=== PATIENT | female | born 2000 | race Caucasian/White ===

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

== ENCOUNTER 2018-06-02 19:48 | Emergency (ER) | END 2018-06-03 01:00 | disposition home or self-care (01) ==

== ENCOUNTER 2018-10-26 15:03 | Emergency (ER) | payer OTHER ==
[~2018-10-26] VITALS: Ht 160 cm; Wt 48.1 kg
[~2018-10-26 15:03] MED LIST changes: +ACET500C5 PO; +IBUP-1542 PO; +IBUP-1561 PO; -IBUP400T22 PO; -NAPR-265 PO; +NAPR-987 PO
[2018-10-26 15:11] VITALS: BP 127/68; PULSE 65; RESP 18; Ht 160 cm; Wt 48.1 kg
[2018-10-26] MEDS ORDERED: IBUP-1542 PO (16:54)
[2018-10-26] MEDS ORDERED: IBUP-1561 PO (16:55)
[2018-10-26] MEDS ORDERED: AMOX500C2 PO (16:56)
[2018-10-26] MEDS ORDERED: FLUT9.9S NASAL (16:56)
--- NOTE | 2018-10-26 17:06 | ERD ---
ER Documentation Chief Complaint Chief Complaint sinus pain, frontal DENNIS X 1 day HPI Patient is a 18-year-old female who presents ER for concerns of intermittent headaches for the last month. Patient states she has had a history of sinus headaches. Patient states over the last month her sinus pain is gotten worse. Patient reports clear nasal secretions. Patient states she has increased pressure in her bilateral miser sinuses. Patient denies any fevers or chills. Patient denies any blurry vision, nausea, vomiting, photophobia, phonophobia, confusion or excessive sleepiness. Patient denied falls or trauma. ROS All systems reviewed and are negative except as per history of present illness. Medications Home Meds Active Scripts Fluticasone Propionate (Flonase Allergy Relief) 9.9 Ml [place].susp, 1 SPRAY NASAL BID, #1 BOTTLE TO EACH NOSTRIL Prov:DANI WHITNEY PA-C 10/26/18 Amoxicillin* (Amoxicillin*) 500 Mg Cap, 500 MG PO BID for 7 Days, CAP Prov:DANI WHITNEY PA-C 10/26/18 Ibuprofen* (Motrin*) 400 Mg Tab, 400 MG PO Q6, #30 TAB Prov:DANI WHITNEY PA-C 10/26/18 Acetaminophen* (Tylophen*) 500 Mg Capsule, 1 CAP PO Q6H PRN for PAIN AND OR ELEVATED TEMP, #20 CAP Prov:MORGAN MORSE 06/03/18 Ibuprofen* (Motrin*) 600 Mg Tab, 600 MG PO Q6H PRN for PAIN AND OR ELEVATED TEMP, #30 TAB Prov:MORGAN MORSE 06/03/18 Ibuprofen* (Motrin*) 400 Mg Tab, 400 MG PO Q6, #30 TAB Prov:JCARLOS ROGERS 05/22/16 Reported Medications Ibuprofen (ADVIL LIQUI-GELS) 200 Mg Capsule, 600 MG PRN 08/11/14 Naproxen (Ec-Naprosyn) 500 Mg Tablet.dr, PO PRN 08/11/14 Sumatriptan Succinate* (Imitrex*) 25 Mg Tablet, 50 MG PRN 08/11/14 Discontinued Scripts Ibuprofen* (Motrin*) 600 Mg Tab, 600 MG PO Q6, #30 TAB Prov:DANI WHITNEY PA-C 10/26/18 Allergies Allergies: Coded Allergies: No Known Allergy (Unverified , 10/26/18) PMhx/Soc Hx Neurological Disorder: Yes (MIGRAINES) Hx Respiratory Disorders: Yes (asthma) Hx Alcohol Use: No Hx Substance Use: No Hx Tobacco Use: No Smoking Status: Never smoker FmHx Family History: No diabetes Physical Exam Vitals Vital Signs Date Temp Pulse Resp B/P (MAP) Pulse Ox O2 O2 Flow FiO2 Time Delivery Rate 10/26/18 96.8 65 18 127/68 98 15:11 (87) Physical Exam GENERAL: Well-developed, well-nourished female. Appears in no acute distress. speaking in full sentences s. HEAD: Normocephalic, atraumatic. EYES: Pupils are equally reactive bilaterally. EOMs grossly intact. No conjunctival erythema. ENT: Moist mucous membranes. No uvula deviation. No kissing tonsils. Bilateral maxillary sinuses are tender to palpation. NECK: Supple. No meningismus. Normal range of motion of the neck. LUNG: Clear to auscultation bilaterally. No rhonchi, wheezing, rales or coarse breath sounds. HEART: Regular rate and rhythm. No murmurs, rubs or gallops. EXTREMITIES: Equal pulses bilaterally. No peripheral clubbing, cyanosis or edema. No unilateral leg swelling. NEUROLOGIC: Alert and oriented. Moving all four extremities without any difficulty. Normal speech. Steady gait. SKIN: Normal color. Warm and dry. No rashes or lesions. Procedures/MDM MEDICAL DECISION MAKING: This is a 18-year-old female with history of recurrent sinusitis presents ER for concerns of a sinus headache times 1 day. Patient states she had intermittent sinus pain for the last month. Vital signs were reviewed. Patient was afebrile. Patient is not hypoxic. Patient has had similar headaches in the past.. Patient denied any fevers, neck stiffness, jaw claudication, visual changes or LOC. On ENT exam, patient did have reproducible tenderness in bilateral maxillary sinuses. Patient will be given prescription for amoxicillin and advised to follow-up with an ENT specialist for recurrent sinus infections. Patient was nontoxic, not appearing prior to discharge. Low suspicion for intracranial hemorrhage, meningitis, encephalitis, CO poisoning, temporal arteritis, benign intracranial hypertension, intracranial mass, glaucoma, preeclampsia, migraine headache, cluster headache. Patient was nontoxic, non- opening prior to discharge. PRESCRIPTIONS: Ibuprofen, Flonase, amoxicillin DISCHARGE: At this time, patient is stable for discharge and outpatient management. I have encouraged the patient to hydrate well. I have instructed the patient to follow- up with his/her primary care physician in 1-2 days. If symptoms persist, patient may need to see a specialist for further examinations and testing. I have instructed the patient to promptly return to the ER at any time for any new or worsening symptoms including increased increased pain, fever, nausea, vomiting, numbness, neck stiffness, visual changes, weakness or LOC. The patient and/or family expressed understanding of and agreement with this plan. All questions were answered. Home care instructions were provided. Disclaimer: Inadvertent spelling and grammatical errors are likely due to EHR/dictation software use and do not reflect on the overall quality of patient care. Also, please note that the electronic time recorded on this note does not necessarily reflect the actual time of the patient encounter. Departure Diagnosis: Primary Impression: Sinus headache Condition: Stable Patient Instructions: Sinus Headaches Referrals: DELFIN DENIS MD, SEDA GROVES,MALIKA BERGER,BERTIN CEE,WILLIAM FUENTES,GINGER Munoz MD [facility] YOU HAVE RECEIVED A MEDICAL SCREENING EXAM AND THE RESULTS INDICATE THAT YOU DO NOT HAVE A CONDITION THAT REQUIRES URGENT TREATMENT IN THE EMERGENCY DEPARTMENT. FURTHER EVALUATION AND TREATMENT OF YOUR CONDITION CAN WAIT UNTIL YOU ARE SEEN IN YOUR DOCTORS OFFICE WITHIN THE NEXT 1-2 DAYS. IT IS YOUR RESPONSIBILITY TO MAKE AN APPOINTMENT FOR FOLOW-UP CARE. IF YOU HAVE A PRIMARY DOCTOR --you should call your primary doctor and schedule an appointment IF YOU DO NOT HAVE A PRIMARY DOCTOR YOU CAN CALL OUR PHYSICIAN REFERRAL HOTLINE AT IF YOU CAN NOT AFFORD TO SEE A PHYSICIAN YOU CAN CHOSE FROM THE FOLLOWING [facility] [address] [facility] [address] [facility] [address] [facility] [address] [facility]. [facility] [address] [facility]. [facility]. [address] [facility]. [facility] YOU HAVE RECEIVED A MEDICAL SCREENING EXAM AND THE RESULTS INDICATE THAT YOU DO NOT HAVE A CONDITION THAT REQUIRES URGENT TREATMENT IN THE EMERGENCY DEPARTMENT. FURTHER EVALUATION AND TREATMENT OF YOUR CONDITION CAN WAIT UNTIL YOU ARE SEEN IN YOUR DOCTORS OFFICE WITHIN THE NEXT 1-2 DAYS. IT IS YOUR RESPONSIBILITY TO MAKE AN APPOINTMENT FOR FOLOW-UP CARE. IF YOU HAVE A PRIMARY DOCTOR --you should call your primary doctor and schedule and appointment IF YOU DO NOT HAVE A PRIMARY DOCTOR YOU CAN CALL OUR PHYSICIAN REFERRAL HOTLINE AT . IF YOU CAN NOT AFFORD TO SEE A PHYSICIAN YOU CAN CHOSE FROM THE FOLLOWING [facility] INSTITUTIONS: [facility] [address] [place] [address] [facility] [address] [place] [address] [facility] [address] [place] [address] Additional Instructions: Follow-up with an ENT doctor on outpatient basis. See referral information. Call your primary care doctor TOMORROW for an appointment during the next 1-2 days.See the doctor sooner or return here if your condition worsens before your appointment time. DANI WHITNEY PA-C Oct 26, 2018 17:06
== END 2018-10-26 17:18 | disposition home or self-care (01) ==
LOC: FTE 15:03
DX: R51 Headache (principal); J45.909 Unspecified asthma, uncomplicated
CPT/HCPCS: 99283